=== PATIENT | female | born 1965 | race Caucasian/White ===

== ENCOUNTER 2017-09-09 11:04 | Emergency (ER) | payer MEDICARE, BC ==
[2017-09-09 11:19] VITALS: BP 112/86
[2017-09-09] MEDS ORDERED: Sodium Chloride 0.9% 10 ML Syringe FLUSH PRN ×2 (11:41→12:08)
[2017-09-09] MEDS ORDERED: Diphtheria,Pertussis(Acell),Tetanus Vaccine 0.5 ML SDV IM ONE (11:41)
--- NOTE | 2017-09-09 11:55 | EDM.PDOC ---
ED HPI GENERAL MEDICAL PROBLEM - General Chief Complaint: Genitourinary Problem Stated Complaint: [facility] Time Seen by Provider: 09/09/17 11:10 Source of Information: Reports: Patient History Limitations: Reports: Language Barrier (patient is deaf, uses ASL to communicate) - History of Present Illness INITIAL COMMENTS - FREE TEXT/NARRATIVE: 51-year-old female presents via [facility] for evaluation and treatment of laceration to the vagina. Reportedly the laceration happened sometime after 8 :30 this morning. Patient reports that she was getting into her tub when she slipped and fell. She has a bar on her tub and this caused a significant laceration to the right side of her vagina. She is currently reporting pain greatest at the right side of her vagina. She declined pain medication by EMS. She reports there was a significant amount of bleeding, bleeding is controlled upon arrival to the ER. Patient reports that she also hit her head and she is some minor neck pain. Does not sound like she had any syncopal episodes but she did feel like she could pass out. No nausea or vomiting. No abdominal pain. Unsure of last tetanus. Of note the patient is deaf. Annette assisted with a neon sign erector was utilized for most of this exam. Onset: Today Vaginal Pain Score (Numeric/FACES): 7 - Related Data Allergies Allergy/AdvReac Type Severity Reaction Status Date / Time Penicillins Allergy Rash Verified 01/28/16 01:11 Home Meds: Home Meds Mirtazapine 15 mg PO BEDTIME 01/27/16 [History] QUEtiapine Fumarate [Seroquel Xr] 150 mg PO BEDTIME 01/27/16 [History] Fish Oil/[place]-3 Fatty Acids [Fish Oil 1,000 MG] 1 gram PO TID 09/09/17 [History ] OLANZapine [Olanzapine] 7.5 mg PO DAILY 09/09/17 [History] Red Yeast Rice 1,200 mg PO BID 09/09/17 [History] traZODone 75 mg PO BEDTIME 09/09/17 [History] Past Medical History HEENT History: Reports: Other (See Below) Other HEENT History: uanble to verbalize Musculoskeletal History: Reports: Other (See Below) Other Musculoskeletal History: 2 surgeries to the right knee Psychiatric History: Reports: Bipolar, Depression Social & Family History - Family History Family Medical History: Unobtainable - Tobacco Use Smoking Status *Q: Never Smoker - Caffeine Use Caffeine Use: Reports: Coffee, Soda - Recreational Drug Use Recreational Drug Use: No ED ROS GENERAL - Review of Systems Review Of Systems: See Below Cardiovascular: Denies: Chest Pain GI/Abdominal: Denies: Abdominal Pain, Nausea, Vomiting Musculoskeletal: Denies: Neck Pain Skin: Reports: Wound (laceration to the right vulva) Neurological: Denies: Syncope ED EXAM, RENAL/ - Physical Exam Exam: See Below Exam Limited By: No Limitations General Appearance: Alert, WD/WN, No Apparent Distress Eye Exam: Bilateral Eye: Normal Inspection, PERRL Ears: Normal External Exam Nose: Normal Inspection Throat/Mouth: Normal Inspection, Normal Lips, Normal Voice, No Airway Compromise Head: Atraumatic, Normocephalic Neck: Normal Inspection, Supple, Non-Tender, Full Range of Motion Respiratory/Chest: No Respiratory Distress, Lungs Clear, Normal Breath Sounds Cardiovascular: Normal Peripheral Pulses, Regular Rate, Rhythm, No Murmur GI/Abdominal: Normal Bowel Sounds, Soft, Non-Tender Extremities: Normal Inspection Neurological: Alert, Oriented, Normal Cognition Psychiatric: Normal Affect, Normal Mood Skin Exam: Warm, Dry, Normal Color, Other (4cm laceraion to the right vulva in between the labia majoria and labia minoria ) Course - Vital Signs Last Recorded V/S: Last Vital Signs Temp 35.9 C 09/09/17 11:17 Pulse 86 09/09/17 11:17 Resp 20 09/09/17 11:17 BP 112/86 09/09/17 11:17 Pulse Ox 98 09/09/17 11:17 - Orders/Labs/Meds Orders: Active Orders 24 hr Category Date Time Status Peripheral IV Care [RC] . DIRECTED Care 09/09/17 11:41 Active Vaccines to be Administered [RC] PER UNIT ROUTINE Care 09/09/17 11:41 Active Peripheral IV Insertion Adult [OM.PC] Routine Oth 09/09/17 11:41 Ordered Labs: Laboratory Tests 09/09/17 09/09/17 Range/Units 11:58 11:58 WBC 15.18 H (3.98-10.04) K/mm3 RBC 4.70 (3.98-5.22) M/mm3 Hgb 14.3 (11.2-15.7) gm/L Hct 42.5 (34.1-44.9) % MCV 90.4 (79.4-94.8) fl MCH 30.4 (25.6-32.2) pg MCHC 33.6 (32.2-35.5) g/dl RDW Std Deviation 42.1 (36.4-46.3) fL Plt Count 233 (182-369) K/mm3 MPV 10.8 (9.4-12.3) fl Neut % (Auto) 87.1 H (34.0-71.1) % Lymph % (Auto) 7.8 L (19.3-51.7) % Jack % (Auto) 4.3 L (4.7-12.5) % Eos % (Auto) 0.3 L (0.7-5.8) Baso % (Auto) 0.2 (0.1-1.2) % Neut # (Auto) 13.22 H (1.56-6.13) K/mm3 Lymph # (Auto) 1.19 (1.18-3.74) K/mm3 Jack # (Auto) 0.66 H (0.24-0.36) K/mm3 Eos # (Auto) 0.04 (0.04-0.36) K/mm3 Baso # (Auto) 0.03 (0.01-0.08) K/mm3 Manual Slide Review Normal smear Sodium 141 (136-145) mEq/L Potassium 4.2 (3.5-5.1) mEq/L Chloride 105 (98-107) mEq/L Carbon Dioxide 27 (21-32) mEq/L Anion Gap 13.2 (5-15) BUN 10 (7-18) mg/dL Creatinine 1.2 H (0.55-1.02) mg/dL Est Cr Clr Drug Dosing 55.95 mL/min Estimated GFR (MDRD) 47 (>60) mL/min BUN/Creatinine Ratio 8.3 L (14-18) Glucose 125 H (74-106) mg/dL Calcium 9.0 (8.5-10.1) mg/dL Meds: Medications Discontinued Medications Generic Name Dose Route Start Last Admin Trade Name Freq PRN Reason Stop Dose Admin Diphtheria/Tetanus/Acell Pertussis 0.5 ml 09/09/17 11:41 09/09/17 11:53 Adacel IM 09/09/17 11:42 0.5 ml .ONCE ONE Administration Iopamidol 125 ml 09/09/17 12:08 09/09/17 12:22 Isovue-300 (61%) IVPUSH 09/09/17 12:09 125 ml ONETIME ONE Administration Lidocaine HCl 50 ml 09/09/17 13:57 09/09/17 15:31 Xylocaine 1% INJECT 09/09/17 13:58 50 ml ONETIME ONE Administration Sodium Chloride 10 ml 09/09/17 11:41 09/09/17 11:54 Saline Flush FLUSH 10 ml ASDIRECTED PRN Administration Keep Vein Open Sodium Chloride 10 ml 09/09/17 12:08 09/09/17 12:22 Saline Flush FLUSH 10 ml ONETIME PRN Administration IV FLUSH - Radiology Interpretation Free Text/Narrative:: Head CT Technique: Multiple axial sections through the brain were obtained. Intravenous contrast was not utilized. Comparison: Prior head CT study of 01/21/10. Findings: Ventricles along with basal cisterns and sulci over the convexities are within normal limits for the patient's age. No abnormal parenchymal densities are seen. No evidence of intracranial hemorrhage. No midline shift or mass effect is seen. Bone window settings were reviewed which shows soft tissue density within the right maxillary sinus which is incompletely visualized. This most likely represents retention cyst which is stable from prior study. Minimal fluid is seen within the left maxillary sinus. Impression: 1. Sinus findings as noted above which are likely incidental. 2. No acute intracranial abnormality is identified on noncontrast head CT exam. CT cervical spine Technique: Multiple axial sections were obtained from above C1 inferiorly to the lower T2 level. Reconstructed sagittal and coronal images were reviewed. Findings: Moderate disc space narrowing is noted at C6-C7 with mild anterior and posterior osteophytes. Mastoid sinuses and middle ear cavities are clear. Posterior skull base is intact. Vertebral bodies and posterior arches are intact with no fracture being identified. Moderate right-sided neural foraminal stenosis is noted at C6 -C7. Other neural foramina are patent. No subluxation is seen. Minimal degenerative change is scattered within the apophyseal joints. Impression: 1. Mild degenerative change. 2. No acute abnormality is identified on CT study of the cervical spine. CT abdomen and pelvis Technique: Multiple axial sections were obtained from above the dome of the diaphragm inferiorly through the pubic symphysis. Intravenous contrast was utilized. No oral contrast has been given. Findings: Small portion of the visualized lung bases are clear. Fatty infiltration is seen within the liver. Spleen appears within normal limits. Adrenal glands show no nodule. Kidneys show symmetric contrast enhancement without hydronephrosis or mass. Pancreas appears normal. Aorta shows no aneurysmal dilatation. No retroperitoneal adenopathy or mesenteric abnormalities are seen. No pelvic mass or adenopathy is seen. Delayed images shows contrast within the bladder. Appendix is not definitely visualized. Bone window settings were reviewed which shows degenerative change primarily within the thoracic spine and upper lumbar spine. Impression: 1. Incidental findings. Nothing acute is appreciated on CT study of the abdomen and pelvis. - Re-Assessments/Exams Free Text/Narrative Re-Assessment/Exam: 09/09/17 14:01 I reviewed the labs and imaging with the patient. She continues to decline pain medication while in the ER. I asked Dr. Ceron, to see the patient. Recommends I discuss the case with Dr. Diop, ob personal banking assistant. Called and spoke with Dr. Diop, she will come and see the patient in the ER. 09/09/17 15:14 Dr. San has seen the patient here in ER. Laceration was repaired. She recommended sitz baths and follow-up within 1-2 weeks. Discharge instructions as documented. Departure - Departure Time of Disposition: 15:16 Disposition: Home, Self-Care 01 Condition: Fair Clinical Impression: Laceration - Discharge Information Instructions: Laceration Care, Adult Referrals: PCP,None [Ordering Only Provider] - Forms: ED Department Discharge Additional Instructions: OTC tylenol or motrin as needed for pain relief. Sitz baths as tolerated. Dr. Diop's office will call you for an appointment in 1-2 weeks. Call [phone] if you do not hear from them. Please return to the ER should your symptoms change or worsen. - My Orders Last 24 Hours: My Active Orders 09/09/17 11:41 Peripheral IV Care [RC] . DIRECTED Vaccines to be Administered [RC] PER UNIT ROUTINE Peripheral IV Insertion Adult [OM.PC] Routine - Assessment/Plan Last 24 Hours: My Active Orders 09/09/17 11:41 Peripheral IV Care [RC] . DIRECTED Vaccines to be Administered [RC] PER UNIT ROUTINE Peripheral IV Insertion Adult [OM.PC] Routine
[2017-09-09] MEDS ORDERED: Iopamidol 612 MG/ML 150 ML Bottle IVPUSH ONE (12:08)
--- NOTE | 2017-09-09 12:43 | CT ---
Head CT Technique: Multiple axial sections through the brain were obtained. Intravenous contrast was not utilized. Comparison: Prior head CT study of 01/21/10. Findings: Ventricles along with basal cisterns and sulci over the convexities are within normal limits for the patient's age. No abnormal parenchymal densities are seen. No evidence of intracranial hemorrhage. No midline shift or mass effect is seen. Bone window settings were reviewed which shows soft tissue density within the right maxillary sinus which is incompletely visualized. This most likely represents retention cyst which is stable from prior study. Minimal fluid is seen within the left maxillary sinus. Impression: 1. Sinus findings as noted above which are likely incidental. 2. No acute intracranial abnormality is identified on noncontrast head CT exam. Diagnostic code #2
--- NOTE | 2017-09-09 12:58 | CT ---
CT cervical spine Technique: Multiple axial sections were obtained from above C1 inferiorly to the lower T2 level. Reconstructed sagittal and coronal images were reviewed. Findings: Moderate disc space narrowing is noted at C6-C7 with mild anterior and posterior osteophytes. Mastoid sinuses and middle ear cavities are clear. Posterior skull base is intact. Vertebral bodies and posterior arches are intact with no fracture being identified. Moderate right-sided neural foraminal stenosis is noted at C6-C7. Other neural foramina are patent. No subluxation is seen. Minimal degenerative change is scattered within the apophyseal joints. Impression: 1. Mild degenerative change. 2. No acute abnormality is identified on CT study of the cervical spine. Diagnostic code #2
--- NOTE | 2017-09-09 12:58 | CT ---
CT abdomen and pelvis Technique: Multiple axial sections were obtained from above the dome of the diaphragm inferiorly through the pubic symphysis. Intravenous contrast was utilized. No oral contrast has been given. Findings: Small portion of the visualized lung bases are clear. Fatty infiltration is seen within the liver. Spleen appears within normal limits. Adrenal glands show no nodule. Kidneys show symmetric contrast enhancement without hydronephrosis or mass. Pancreas appears normal. Aorta shows no aneurysmal dilatation. No retroperitoneal adenopathy or mesenteric abnormalities are seen. No pelvic mass or adenopathy is seen. Delayed images show contrast within the bladder. Appendix is not definitely visualized. Bone window settings were reviewed which show degenerative change primarily within the thoracic spine and upper lumbar spine. Impression: 1. Incidental findings. Nothing acute is appreciated on CT study of the abdomen and pelvis. Diagnostic code #2
[2017-09-09] MEDS ORDERED: Lidocaine 1% 50 ML MDV INJECT ONE (13:57)
--- NOTE | 2017-09-10 08:04 | PCM.CONS ---
H&P History of Present Illness - General Date of Service: 09/09/17 Source of Information: Patient - History of Present Illness Initial Comments - Free Text/Narative: 51 year old female presented to ER via ambulance after a fall in her tub with a resultant labial laceration. Applied pressure at home but was unable to get bleeding to stop. Vaginal Pain Score (Numeric/FACES): 7 - Related Data Allergies/Adverse Reactions: Allergies Allergy/AdvReac Type Severity Reaction Status Date / Time Penicillins Allergy Rash Verified 01/28/16 01:11 Home Medications: Home Meds Mirtazapine 15 mg PO BEDTIME 01/27/16 [History] QUEtiapine Fumarate [Seroquel Xr] 150 mg PO BEDTIME 01/27/16 [History] Fish Oil/[place]-3 Fatty Acids [Fish Oil 1,000 MG] 1 gram PO TID 09/09/17 [History ] OLANZapine [Olanzapine] 7.5 mg PO DAILY 09/09/17 [History] Red Yeast Rice 1,200 mg PO BID 09/09/17 [History] traZODone 75 mg PO BEDTIME 09/09/17 [History] Past Medical History HEENT History: Reports: Other (See Below) Other HEENT History: uanble to verbalize Musculoskeletal History: Reports: Other (See Below) Other Musculoskeletal History: 2 surgeries to the right knee Psychiatric History: Reports: Bipolar, Depression Social & Family History - Family History Family Medical History: Unobtainable - Tobacco Use Smoking Status *Q: Never Smoker - Caffeine Use Caffeine Use: Reports: Coffee, Soda - Recreational Drug Use Recreational Drug Use: No H&P Review of Systems - Review of Systems: Review Of Systems: See Below General: Reports: No Symptoms HEENT: Reports: No Symptoms Pulmonary: Reports: No Symptoms Cardiovascular: Reports: No Symptoms Gastrointestinal: Reports: No Symptoms Genitourinary: Reports: Other (see hpi) Musculoskeletal: Reports: No Symptoms Skin: Reports: No Symptoms Psychiatric: Reports: No Symptoms Neurological: Reports: No Symptoms Hematologic/Lymphatic: Reports: No Symptoms Immunologic: Reports: No Symptoms Exam - Exam Exam: See Below - Vital Signs Vital Signs: Last Vital Signs Temp 35.9 C 09/09/17 11:17 Pulse 86 09/09/17 11:17 Resp 20 09/09/17 11:17 BP 112/86 09/09/17 11:17 Pulse Ox 98 09/09/17 11:17 Weight: 104.326 kg - Exam General: Alert, Oriented Cardiovascular: Regular Rate, Regular Rhythm (Female) Exam: Vaginal Tears (laceration on labia medial to labia majora. Approximately 3 cm deep and 4 cm long.) Back Exam: Normal Inspection, Full Range of Motion, NT Extremities: Normal Inspection, Normal Range of Motion, Non-Tender, No Pedal Edema, Normal Capillary Refill Skin: Warm, Dry, Intact Neurological: Cranial Nerves Intact, Reflexes Equal Bilateral Neuro Extensive - Mental Status: Alert, Oriented x3, Normal Mood/Affect, Normal Cognition Neuro Extensive - Motor, Sensory, Reflexes: CN II-XII Intact Psychiatric: Alert, Normal Affect, Normal Mood - Patient Data Lab Results Last 24 hrs: Laboratory Results - last 24 hr 09/09/17 09/09/17 Range/Units 11:58 11:58 WBC 15.18 H (3.98-10.04) K/mm3 RBC 4.70 (3.98-5.22) M/mm3 Hgb 14.3 (11.2-15.7) gm/L Hct 42.5 (34.1-44.9) % MCV 90.4 (79.4-94.8) fl MCH 30.4 (25.6-32.2) pg MCHC 33.6 (32.2-35.5) g/dl RDW Std Deviation 42.1 (36.4-46.3) fL Plt Count 233 (182-369) K/mm3 MPV 10.8 (9.4-12.3) fl Neut % (Auto) 87.1 H (34.0-71.1) % Lymph % (Auto) 7.8 L (19.3-51.7) % Coleman % (Auto) 4.3 L (4.7-12.5) % Eos % (Auto) 0.3 L (0.7-5.8) Baso % (Auto) 0.2 (0.1-1.2) % Neut # (Auto) 13.22 H (1.56-6.13) K/mm3 Lymph # (Auto) 1.19 (1.18-3.74) K/mm3 Coleman # (Auto) 0.66 H (0.24-0.36) K/mm3 Eos # (Auto) 0.04 (0.04-0.36) K/mm3 Baso # (Auto) 0.03 (0.01-0.08) K/mm3 Manual Slide Review Normal smear Sodium 141 (136-145) mEq/L Potassium 4.2 (3.5-5.1) mEq/L Chloride 105 (98-107) mEq/L Carbon Dioxide 27 (21-32) mEq/L Anion Gap 13.2 (5-15) BUN 10 (7-18) mg/dL Creatinine 1.2 H (0.55-1.02) mg/dL Est Cr Clr Drug Dosing 55.95 mL/min Estimated GFR (MDRD) 47 (>60) mL/min BUN/Creatinine Ratio 8.3 L (14-18) Glucose 125 H (74-106) mg/dL Calcium 9.0 (8.5-10.1) mg/dL Result Diagrams: 09/09/17 11:58 09/09/17 11:58 Consult PN Assessment/Plan Procedures: Procedures ASSAY GLUCOSE BLOOD QUANT (03/11/14) ASSAY THYROID STIM HORMONE (01/27/16) CHORIONIC GONADOTROPIN ASSAY (01/27/16) COMPLETE CBC W/AUTO DIFF WBC (01/27/16) COMPREHEN METABOLIC PANEL (01/27/16) EMERGENCY DEPT VISIT (01/27/16) LIPID PANEL (03/11/14) ROUTINE VENIPUNCTURE (01/27/16) URINALYSIS AUTO W/SCOPE (01/27/16) Problem List Initiated/Reviewed/Updated: Yes Plan: Labial laceration. Consent obtained verbally and time out preformed. Area cleansed with hibaclens Interrupted deep sutures placed of 3-0 vicryl. Running subcuticular suture used to reapproximated with 4-0 vicryl
== END 2017-09-09 15:43 | disposition home or self-care (01) ==
LOC: JD.ED 11:04
DX: S31.41XA Laceration without foreign body of vagina and vulva, initial encounter (principal); F31.9 Bipolar disorder, unspecified; Z23 Encounter for immunization; Z79.899 Other long term (current) drug therapy; Z88.0 Allergy status to penicillin; W18.2XXA Fall in (into) shower or empty bathtub, initial encounter
CPT/HCPCS: 12002; 36415; 70450; 72125; 74177; 80048; 85025; 90471; 90715; 99285; J7050; Q9967; 99284

== ENCOUNTER 2023-03-03 22:03 | Emergency (ER) | payer BC, MEDICARE ==
[2023-03-03 22:47] LABS: BASOPHILS ABSOLUTE AUTO 0.02 K/mm3 (0.01-0.08); BASOPHILS PERCENT AUTO 0.2 % (0.1-1.2); EOSINOPHILS ABSOLUTE AUTO 0.03 K/mm3 (0.04-0.36); EOSINOPHILS PERCENT AUTO 0.3 (0.7-5.8); HEMATOCRIT 43.9 % (34.1-44.9); HEMOGLOBIN 14.8 gm/dl (11.2-15.7); IMMATURE GRAN ABSOLUTE AUTO 0.02 K/mm3 (0.00-0.10); IMMATURE GRAN PERCENT AUTO 0.2 % (<=1.0); LYMPHOCYTES ABSOLUTE AUTO 1.04 K/mm3 (1.18-3.74); LYMPHOCYTES PERCENT AUTO 10.7 % (19.3-51.7); MEAN CORPUSCULAR HEMOGLOBIN 30.1 pg (25.6-32.2); MEAN CORPUSCULAR HGB CONC 33.7 g/dl (32.2-35.5); MEAN CORPUSCULAR VOLUME 89.4 fl (79.4-94.8); MEAN PLATELET VOLUME 11.7 fl (9.4-12.3); MONOCYTES PERCENT AUTO 5.1 % (4.7-12.5); NEUTROPHILS ABSOLUTE AUTO 8.14 K/mm3 (1.56-6.13); NEUTROPHILS PERCENT AUTO 83.5 % (34.0-71.1); PLATELET COUNT,PLT 192 K/mm3 (182-369); RED BLOOD CELL COUNT 4.91 M/mm3 (3.98-5.22); WHITE BLOOD CELL COUNT,WBC 9.75 K/mm3 (3.98-10.04)
[2023-03-03 23:12] LABS: A/G RATIO 0.9 (1-2); ALANINE AMINOTRANSFERASE,ALT 35 U/L (14-59); ALBUMIN 3.3 g/dl (3.4-5.0); ALKALINE PHOSPHATASE 80 U/L (46-116); ANION GAP 16.3 (5-15); ASPARTATE AMNIOTRANSFERASE,AST 14 U/L (15-37); BLOOD UREA NITROGEN,BUN 13 mg/dL (7-18); CALCIUM 8.4 mg/dL (8.5-10.1); CARBON DIOXIDE,CO2 22 mEq/L (21-32); CHLORIDE,CL 106 mEq/L (98-107); CREATININE 1.3 mg/dL (0.55-1.02); ESTIMATED GFR 48 mL/min (>60); GLUCOSE RANDOM 131 mg/dL (70-99); POTASSIUM,K 3.3 mEq/L (3.5-5.1); PROTEIN TOTAL,TP 7.1 g/dl (6.4-8.2); SODIUM,NA 141 mEq/L (136-145); TROPONIN I HIGH SENSITIVITY 5 pg/mL (<=51)
[2023-03-03 23:14] LABS: PROTHROMBIN TIME 10.7 SECONDS (9.7-12.0)
[2023-03-03 23:15] LABS: D-DIMER QUANTITATIVE 0.33 mg/L (0.19-0.50)
[2023-03-03 23:48] VITALS: BP 132/59; PULSE 79
== END 2023-03-03 23:47 | disposition home or self-care (01) ==
LOC: JD.ED 22:03
DX: R00.2 Palpitations (principal); Z88.0 Allergy status to penicillin; Z79.899 Other long term (current) drug therapy
CPT/HCPCS: 36415; 71045; 71045-26; 80053; 84484; 85025; 85379; 85610; 93005; 93010; 99282; 99285